=== PATIENT | male | born 1995 | race Caucasian/White ===

== ENCOUNTER 2017-03-14 20:13 | Emergency (ER) | payer OTHER ==
[~2017-03-14] VITALS: Ht 182.9 cm; Wt 86.2 kg
[2017-03-14] MEDS ORDERED: NO MEDICATIONS (20:32)
== END 2017-03-14 21:15 | disposition home or self-care (01) ==
LOC: SED 20:13
DX: K02.9 Dental caries, unspecified (principal); K21.9 Gastro-esophageal reflux disease without esophagitis
CPT/HCPCS: 99282